=== PATIENT | male | born 1985 | race African-American/Black ===

== ENCOUNTER 2016-06-21 08:00 | Emergency (ER) | payer OTHER ==
[~2016-06-21] VITALS: Ht 180.3 cm; Wt 104.3 kg
[~2016-06-21 08:00] MED LIST: IBU-6600 MG PO; TRAMADOL50 MG PO
[2016-06-21 08:06] VITALS: BP 129/72
--- NOTE | 2016-06-21 09:50 | ED ANKLE/FOOT INJURY COMPLAINT ---
History of Present Illness General Chief Complaint: Foot or Ankle Injury Stated Complaint: LEFT TOE SWELLING Source: patient Exam Limitations: no limitations Vital Signs & Intake/Output Vital Signs & Intake/Output Vital Signs Date Time Temp Pulse Resp B/P Pulse O2 O2 Flow FiO2 Ox Delivery Rate 06/21 1032 98 Room Air 06/21 0806 97.8 77 20 129/72 96 Room Air Allergies Coded Allergies: NO KNOWN ALLERGIES (09/03/11) Reconcile Medications No Known Home Medications Triage Note: PT TO ED C/O LEFT SECOND TOE PAIN AND SWELLING. STATES HE WORE NEW BOOTS LAST NIGHT AT WORK, UNSURE IF HE GOT BIT BY SOMETHING. Triage Nurses Notes Reviewed? yes Occurred: just prior to arrival Duration: hour(s): (few), constant, continues in ED Timing: recent history Pain/Injury Location: Left: 3rd toe. HPI: 30-year-old male comes into emergency room for further evaluation of left third toe swelling. Patient reports that he went to work today and put on new shoes and his toes were bothering him. Patient reports that after while he took his shoe off and then he noticed some swelling to the left toe. The swelling was not there this morning. Denies any redness. Denies being bit by anything that he is aware of. Denies any trauma that he is aware of. Denies any other associated symptoms. Past History Travel History Traveled to [place] past 21 day No Medical History Any Pertinent Medical History? 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 No Review of Systems Review of Systems Constitutional: Reports: no symptoms. EENTM: Reports: no symptoms. Respiratory: Reports: no symptoms. Cardiovascular: Reports: no symptoms. GI: Reports: no symptoms. Genitourinary: Reports: no symptoms. Musculoskeletal: Reports: no symptoms. Skin: Reports: see HPI. Neurological/Psychological: Reports: no symptoms. Hematologic/Endocrine: Reports: no symptoms. Immunologic/Allergic: Reports: no symptoms. All Other Systems: Reviewed and Negative Physical Exam Physical Exam General Appearance: well developed/nourished, mild distress Head: atraumatic Eyes: Bilateral: normal appearance. Ears, Nose, Throat: normal ENT inspection, hearing grossly normal Neck: normal inspection Cardiovascular/Respiratory: no respiratory distress Back: normal inspection Leg/Knee/Thigh Left: normal range of motion Ankle Left: normal inspection, normal range of motion Foot Left: fluid bolus left third toe, no erythema, pain with range of motion, capillary refill intact, Neuro/Vascular: normal sensation Tendon: normal tendon function Psychiatric: awake, alert, oriented x 3 Skin: intact, normal color, warm/dry Progress Differential Diagnosis: cellulitis, septic arthritis, gout, fracture, insect bite,, bullous pemphigoid Plan of Care: 06/21/2016 11:36:04 AM The patient clinically looks well. Nontoxic appearing. Patient has fluid bolus. Does not appear to be a blister but could be from friction from the new shoe. Possibility of also a bite of some sort. Patient was placed in the open shoe and foot was wrapped. Bullous was left in place at this time. No other associated symptoms. Departure Departure Disposition: HOME OR SELF CARE Condition: Stable Clinical Impression Primary Impression: Bullous lesion Referrals: PATIENT HAS NO PRIMARY CARE DR (PCP/Family) Additional Instructions: Keep covered with bulky dressing. Keep covered with bacitracin. Have recheck in 3-5 days. Return if any redness, increased swelling, or any other concerns worsening symptoms. Please note that there might be incidental findings in your evaluation that are unrelated to the current emergency department visit. Please notify your primary care doctor about this emergency department visit in order to obtain and review all of the testing performed so that these incidental findings can be monitored as needed. If you had an x-ray performed, please understand that some fractures may not be seen on the initial set of x-rays. If your symptoms persist you might need a repeat set of x-rays to check for such a fracture. If you had a laceration evaluated, please understand that foreign bodies such as glass or wood may not be visible to the naked eye or on plain x-rays. If the wound becomes red, swollen, increasingly more painful or if there is any drainage from the wound, please have it reevaluated by a physician for the possibility of a retained foreign body. Departure Forms: Customer Survey General Discharge Information Prescriptions: Current Visit Scripts No Known Home Medications
== END 2016-06-21 10:33 ==
LOC: ERH 08:00
DX: R23.8 Other skin changes (principal)
CPT/HCPCS: 99282

== ENCOUNTER 2016-06-23 10:08 | Emergency (ER) | payer OTHER ==
[~2016-06-23] VITALS: Ht 180.3 cm; Wt 104.3 kg
[2016-06-23 10:23] VITALS: BP 122/78
[2016-06-23] MEDS ORDERED: KEFLEX500 M1 PO (11:12)
--- NOTE | 2016-06-23 11:13 | ED ANIMAL BITE/WOUND CHECK ---
History of Present Illness General Chief Complaint: Suture Removal/Wound Recheck Stated Complaint: WOUND CHECK Source: patient Exam Limitations: no limitations Vital Signs & Intake/Output Vital Signs & Intake/Output Vital Signs Date Time Temp Pulse Resp B/P Pulse O2 O2 Flow FiO2 Ox Delivery Rate 06/23 1023 97.2 62 18 122/78 98 Room Air Allergies Coded Allergies: NO KNOWN ALLERGIES (09/03/11) Reconcile Medications Cephalexin (Keflex) 500 MG CAPSULE 1 CAP PO TID CELLULITIS Triage Note: 30 Y/O MALE RETURNS FOR WOUND CHECK TO L TOE. WAS EVAL'D TUESDAY FOR FLUID FILLED BLISTER AND TOLD TO RETURN TODAY. STATES BLISTER POPPED TUESDAY AND IS NOW OPEN. SITE A LITTLE BLOODY AND PT STATES "IT KEEPS LEAKING". STATES HE IS NOT ON ANTIBIOTICS. Triage Nurses Notes Reviewed? yes Onset: Abrupt Duration: day(s):, constant, continues in ED Timing: recent history Injury Environment: home Is Injury an Animal Bite? No No Modifying Factors: none HPI: 30-year-old male comes into emergency room for further evaluation of wound check to left foot. Symptoms of a going on for the past few days. Patient was seen here the other day because he had a bolus of fluid on his left third toe. Patient reports it popped and he comes back in for a wound check. Denies any fever or chills. Denies any other new associated symptoms. Mild throbbing pain. (JOHNATHON MUÑOZ) Past History Travel History Traveled to [place] past 21 day No Medical History Any Pertinent Medical History? 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 No (JOHNATHON MUÑOZ) Review of Systems Review of Systems Constitutional: Reports: no symptoms. EENTM: Reports: no symptoms. Respiratory: Reports: no symptoms. Cardiovascular: Reports: no symptoms. GI: Reports: no symptoms. Genitourinary: Reports: no symptoms. Musculoskeletal: Reports: no symptoms. Skin: Reports: see HPI. Neurological/Psychological: Reports: no symptoms. Hematologic/Endocrine: Reports: no symptoms. Immunologic/Allergic: Reports: no symptoms. All Other Systems: Reviewed and Negative (JOHNATHON MUÑOZ) Physical Exam Physical Exam General Appearance: well developed/nourished Head: atraumatic Eyes: Bilateral: normal appearance. Ears, Nose, Throat: normal ENT inspection, hearing grossly normal Neck: normal inspection Respiratory: no respiratory distress Back: normal inspection Extremities: fluid-filled bullous popped in left third toe, some mild surrounding erythema, cap refill intact, full range of motion, Neurologic/Psych: awake, alert, oriented x 3, normal mood/affect Skin: intact, normal color, warm/dry Lymphatic: no anterior cervical judi (JOHNATHON MUÑOZ) Progress Differential Diagnosis: abscess, cellulitis, joint infection, tenosysnovitis Plan of Care: 06/23/2016 11:21:47 AM Patient started on short course of oral antibiotics. Follow-up with primary. Continue to use open shoe. Return if any other concerns. (JOHNATHON MUÑOZ) Departure Departure Disposition: HOME OR SELF CARE Condition: Stable Clinical Impression Primary Impression: Visit for wound check Referrals: PATIENT HAS NO PRIMARY CARE DR (PCP/Family) Additional Instructions: Keep covered with bacitracin. Take Keflex as prescribed. Return if any concerns worsening symptoms. Please go over all results of today's visit with your primary care doctor. Contact your primary care doctor to let them know you were here in the emergency room. There may be nonspecific findings which may not be related to your visit today here in the emergency room but may require further evaluation and chronic monitoring by your primary care doctor. If you had a laceration today the chance of foreign body always remains. You should follow-up with your primary care doctor for recheck in 3-5 days for a wound check. If you had an x-ray done there is a chance that a fracture could have been missed on initial read and you should follow-up with your primary care doctor for repeat x-rays if symptoms persist. If your blood pressure was elevated here in the emergency room please have rechecked by her primary care doctor within the next 48 hours by your primary care doctor. If you were prescribed a narcotic here in the emergency room or any type of controlled substances you're not allowed to drive while taking this medication or operate any type of heavy machinery. Narcotics can make you feel lightheaded dizziness nausea and can cause constipation. You may need to picker and packer a stool softener. Thank you for choosing [facility] emergency room. Please return to the emergency room immediately if you have any other concerns worsening of symptoms. Departure Forms: Customer Survey General Discharge Information Prescriptions: Current Visit Scripts Cephalexin (Keflex) 1 CAP PO TID #15 CAP (JOHNATHON MUÑOZ) PA/TAX PROFESSIONAL Co-Sign Statement Statement: ED Attending supervision documentation- [] I saw and evaluated the patient. I have also reviewed all the pertinent lab results and diagnostic results. I agree with the findings and the plan of care as documented in the PA's/TAX PROFESSIONAL's documentation. x I have reviewed the ED Record and agree with the PA's/TAX PROFESSIONAL's documentation. [] Additions or exceptions (if any) to the PAs/TAX PROFESSIONAL's note and plan are summarized below: [] (BRENNEN YORK,OSMAN)
== END 2016-06-23 11:14 ==
LOC: ERH 10:08
DX: R23.8 Other skin changes (principal)

== ENCOUNTER 2016-06-28 10:25 | Emergency (ER) | payer OTHER ==
[~2016-06-28] VITALS: Ht 180.3 cm; Wt 104.3 kg
[~2016-06-28 10:25] MED LIST changes: +KEFLEX500 M1 PO
[2016-06-28 10:52] VITALS: BP 142/83
--- NOTE | 2016-06-28 11:39 | ED ANKLE/FOOT INJURY COMPLAINT ---
History of Present Illness General Chief Complaint: Foot or Ankle Injury Stated Complaint: L FOOT PAIN Source: patient Exam Limitations: no limitations Vital Signs & Intake/Output Vital Signs & Intake/Output Vital Signs Date Time Temp Pulse Resp B/P Pulse O2 O2 Flow FiO2 Ox Delivery Rate 06/28 1052 97.6 74 18 142/83 99 Room Air Allergies Coded Allergies: NO KNOWN ALLERGIES (09/03/11) Reconcile Medications Cephalexin (Keflex) 500 MG CAPSULE 1 CAP PO TID CELLULITIS Triage Note: 30 Y/O MALE RETURNS FOR WOUND RECHECK AND RETURN TO WORK NOTE; WAS EVAL'D A WEEK AGO TODAY FOR FLUID FILLED BLISTER ON L TOE. STATES IT POPPED AND APPEARS TO BE HEALING WELL. NEEDS CLEARANCE TO RETURN TO WORK. ORTHO SHOE IN PLACE. Triage Nurses Notes Reviewed? yes Occurred: last week Duration: week(s): (1) Timing: recent history Severity: mild Severity Numbers: 4 Pain/Injury Location: Left: 3rd toe. Method of Injury: unknown HPI: Patient is a 30-year-old male presenting to the emergency Department for wound check and to get a work note to return to work. Patient reports that he was seen here last week for a blister which popped on his left foot. He reports it' s healing up well. No increased redness or pain. No fevers or chills. Denies any discharge. He needs a note to return to work. (BART RESENDEZ) Past History Travel History Traveled to [place] past 21 day No Medical History Any Pertinent Medical History? 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 No (BART RESENDEZ) Review of Systems Review of Systems Constitutional: Reports: no symptoms. Comments Review of systems: See HPI, All other systems negative. Constitutional, no chills fever or weight loss HEENT: No visual changes no sore throat no congestion Cardiovascular: No chest pain ,palpitation Skin, no jaundice Respiratory: No dyspnea GI: No nausea no vomiting Muscle skeletal: no back pain, no neck pain, Neurologic: No numbness Psych: No stress anxiety Immunology: No splenectomy or history of AIDS (BART RESENDEZ) Physical Exam Physical Exam General Appearance: well developed/nourished, no apparent distress, alert, awake , comfortable Leg/Knee/Thigh Left: normal range of motion Comments: Well-developed well-nourished no apparent distress. HEENT: Atraumatic, extraocular motion intact Neck: Supple, no lymphadenopathy Back: Nontender Respiratory: No respiratory distress Extremities: No edema, full range of motion of all toes on the lower shins bilaterally. Pedal pulses are 2+ bilaterally. Capillary refills intact and lower extremity bilaterally. Skin: Avulsion ocularly 1 cm in diameter noted at the base of the left third toe. No surrounding erythema or edema. Nontender to palpation. Neuro: Alert and oriented x3 Psych: Mood affect normal, normal memory normal judgment. (BART RESENDEZ) Progress Differential Diagnosis: CELLULITIS, ABRASION, SKIN AVULSION, WOUND CHECK Plan of Care: Wound was dressed with bacitracin and nonstick dressing. Patient will return to work in 2 days. Patient nontoxic. EDUCTED on signs and symptoms to return. (BART RESENDEZ) Departure Departure Time of Disposition: 1142 Disposition: HOME OR SELF CARE Condition: Stable Clinical Impression Primary Impression: Skin avulsion Referrals: PATIENT HAS NO PRIMARY CARE DR (PCP/Family) Additional Instructions: Follow-up with your primary care physician call to make an appointment. Keep area clean, dry. Apply bacitracin daily. Return for worsening symptoms or concerns. Departure Forms: Customer Survey General Discharge Information (BART RESENDEZ) PA/FARM SPECIALIST Co-Sign Statement Statement: ED Attending supervision documentation- [] I saw and evaluated the patient. I have also reviewed all the pertinent lab results and diagnostic results. I agree with the findings and the plan of care as documented in the PA's/FARM SPECIALIST's documentation. [X] I have reviewed the ED Record and agree with the PA's/FARM SPECIALIST's documentation. [] Additions or exceptions (if any) to the PAs/FARM SPECIALIST's note and plan are summarized below: [] (JAMESON BRASWELL DO
== END 2016-06-28 11:52 ==
LOC: ERH 10:25
DX: S90.822D Blister (nonthermal), left foot, subsequent encounter (principal)
CPT/HCPCS: 99282